=== PATIENT | male | born 1955 | race Caucasian/White ===

== ENCOUNTER → 2017-04-21 | Outpatient (CLI) | payer OTHER ==
[~2017-04-21] VITALS: Ht 172.7 cm; Wt 73.3 kg
[~2017-04-21] MED LIST: ASPI-516 CHEW; AVOD0.5C PO; LACTATED RINGER'S 1000 ML IV PRN; LIDOCAINE HCL 1% PF 5 ML SYRINGE OTHER ONE; LORA1TAB12 PO; METOPROLOL TARTRATE 25 MG TAB PO PRN; POVIDONE IODINE 5% (ANTISEPSIS KIT) 4 APPLICATIONS EACH NARE PRN; PROPOFOL 200 MG/20 ML AMP IV ONE; SERT-132 PO; SIMV40TA PO; SODIUM CHLORID 0.9% 500 ML IV PRN
--- NOTE | 2017-04-21 11:17 | EKG ---
Date Performed: 04/21/2017 Time Performed: 08:10:19 PTAGE: 62 years EKG: SINUS BRADYCARDIA BORDERLINE RIGHT AXIS DEVIATION BORDERLINE ECG No significant change from prior electrocardiogram. PREVIOUS TRACING : 12/23/2015 05.01 DOCTOR: Marcello Cheek Interpretating Date/Time 04/21/2017 11:15:53
--- NOTE | 2017-04-21 11:37 | GIPROC ---
[facility] [address] [facility]. [facility], [address] EGD PROCEDURE REPORT EXAM DATE: 04/21/2017 PATIENT NAME: Addy Clemons MR #: [id number] BIRTHDATE: 1955 ATTENDING: Jamaal Miller MD ORDER #: [id number] DINING SERVER: Christoph Roberto Pat STATUS: outpatient INDICATIONS: The patient is a 62 yr old male here for an EGD due to dysphagia PROCEDURE PERFORMED: EGD w/ biopsy MEDICATIONS: Per Anesthesia and None. TOPICAL ANESTHETIC: none CONSENT: The patient understands the risks and benefits of the procedure and understands that these risks include, but are not limited to: sedation, allergic reaction, infection, perforation and/or bleeding. Alternative means of evaluation and treatment include, among others: physical exam, x-rays, and/or surgical intervention. The patient elects to proceed with this endoscopic procedure. medical equipment was checked for proper function. Hand hygiene and appropriate measures for infection prevention was taken. After the risks, benefits and alternatives of the procedure were thoroughly explained, Informed consent was verified, confirmed and timeout was successfully executed by the treatment team. The patient was anesthetized with topical anesthesia and the [employer] [id number] endoscope was introduced through the mouth and advanced to the second portion of the duodenum. Retroflexed views revealed a hiatal hernia The gastroscope was then slowly withdrawn and removed. Severe esophagitis entire esophagus with thickened white exudate. Esophagus dilated with retained secretions and a few food particles c/w achalasia. Multiple biopsies were performed using cold forceps. STOMACH: A 1cm hiatal hernia was noted. The stomach otherwise appeared normal. DUODENUM: The duodenal mucosa appeared normal. ADVERSE EVENTS: There were no complications. IMPRESSIONS: 1. Severe esophagitis entire esophagus with thickened white exudate. Esophagus dilated with retained secretions and a few food particles c/w achalasia 2. 1cm hiatal hernia 3. The stomach otherwise appeared normal 4. Normal duodenal mucosa 5. Retroflexed views revealed a hiatal hernia RECOMMENDATIONS: Schedule Barium swallow and esophageal manometry. PATIENT CONDITION: stable DISPOSITION: Home REPEAT EXAM: NONE Jamaal Miller MD eSigned: Jamaal Miller MD 04/21/2017 11:37 AM cc: Cirilo Crowley M.D. PATIENT NAME: Addy Clemons MR#: [id number]
--- NOTE | 2017-04-21 11:43 | GIPROC ---
[facility] [address] [facility]. [facility], [address] COLONOSCOPY PROCEDURE REPORT EXAM DATE: 04/21/2017 PATIENT NAME: Addy Clemons MR #: [id number] BIRTHDATE: 1955 ENDOSCOPIST: Jamaal Miller MD ORDER #: [id number] DIRECTOR DESIGN: Christoph Roberto Pat STATUS: outpatient INDICATIONS: The patient is a 62 yr old male here for a colonoscopy due to follow up of colonic polyps and patient's immediate family history of colon cancer PROCEDURE PERFORMED: Colonoscopy, diagnostic MEDICATIONS: Per Anesthesia and None. PREP QUALITY: good ESTIMATED BLOOD LOSS: None CONSENT: The patient understands the risks and benefits of the procedure and understands that these risks include, but are not limited to: sedation, allergic reaction, infection, perforation and/or bleeding. Alternative means of evaluation and treatment include, among others: physical exam, x-rays, and/or surgical intervention. The patient elects to proceed with this endoscopic procedure. medical equipment was checked for proper function. Hand hygiene and appropriate measures for infection prevention was taken. After the risks, benefits and alternatives of the procedure were thoroughly explained, Informed consent was verified, confirmed and timeout was successfully executed by the treatment team. A digital exam revealed no abnormalities of the rectum The Pentax [id number] endoscope was introduced through the anus and advanced to the cecum, which was identified by both the appendix and ileocecal valve. The instrument was then slowly withdrawn as the colon was fully examined. COLON FINDINGS: Mild diverticulosis was noted in the sigmoid colon. Retroflexion was performed and was normal The scope was then completely withdrawn from the patient and the procedure terminated. PROCEDURE WITHDRAWAL TIME:8minutes ADVERSE EVENTS: There were no complications. IMPRESSIONS: 1. Mild diverticulosis was noted in the sigmoid colon 2. Retroflexion was performed and was normal 3. Revealed no abnormalities of the rectum RECOMMENDATIONS: RECALL: Return 3 years Colonoscopy Jamaal Miller MD eSigned: Jamaal Miller MD 04/21/2017 11:42 AM cc: Cirilo Snowden M.D. PATIENT NAME: Addy Clemons MR#: [id number]
[2017-04-21 12:20] VITALS: BP 120/77; PULSE 52; RESP 20; TEMP 98; O2SAT 100
== END ==
LOC: HEND 07:47
PROVIDERS: ATTEND Internal Medicine Gastroenterology
DX: Z12.11 Encounter for screening for malignant neoplasm of colon (principal); Z86.010 Personal history of colon polyps; K57.30 Diverticulosis of large intestine without perforation or abscess without bleeding; K44.9 Diaphragmatic hernia without obstruction or gangrene; K20.9 Esophagitis, unspecified; R13.10 Dysphagia, unspecified; R94.31 Abnormal electrocardiogram [ECG] [EKG]
CPT/HCPCS: 00813; 43239; 45378; 88305; 93005; J7120

== ENCOUNTER → 2017-05-04 | Outpatient (CLI) | payer OTHER ==
[~2017-05-04] VITALS: Ht 172.7 cm; Wt 70.4 kg
[~2017-05-04] MED LIST changes: +BENZOCAINE 20% ORAL SPR 60 ML CAN OROPHARYNG ONE; -LACTATED RINGER'S 1000 ML IV PRN; -LIDOCAINE HCL 1% PF 5 ML SYRINGE OTHER ONE; +LIDOCAINE HCL 2% JELLY 5 ML SYRINGE TOPICAL ONE; -METOPROLOL TARTRATE 25 MG TAB PO PRN; -POVIDONE IODINE 5% (ANTISEPSIS KIT) 4 APPLICATIONS EACH NARE PRN; -PROPOFOL 200 MG/20 ML AMP IV ONE; -SODIUM CHLORID 0.9% 500 ML IV PRN
[2017-05-04 07:26] VITALS: BP 157/74; PULSE 54; RESP 16; TEMP 98.2; O2SAT 100
== END ==
LOC: HEND 06:49
PROVIDERS: ATTEND Internal Medicine Gastroenterology
DX: R13.10 Dysphagia, unspecified (principal); K44.9 Diaphragmatic hernia without obstruction or gangrene; I25.10 Atherosclerotic heart disease of native coronary artery without angina pectoris
CPT/HCPCS: 91010

== ENCOUNTER 2017-06-05 11:15 | Observation (INO) | payer OTHER ==
[~2017-06-05 11:15] MED LIST changes: -BENZOCAINE 20% ORAL SPR 60 ML CAN OROPHARYNG ONE; -LIDOCAINE HCL 2% JELLY 5 ML SYRINGE TOPICAL ONE
[2017-06-05 11:33] VITALS: BP 170/89; PULSE 74; RESP 14; TEMP 98.3; O2SAT 98
[2017-06-05 12:23] VITALS: BP 163/76; PULSE 65; RESP 16; O2SAT 60; O2SAT 99
--- NOTE | 2017-06-05 12:24 | RADRPT ---
EXAM DATE/TIME: 06/05/2017 12:04 [place] COMPARISON: No previous studies available for comparison. INDICATIONS : Chest pain in middle of chest. MEDICAL HISTORY : Cardiovascular disease. Renal calculi SURGICAL HISTORY : CABG. Appendectomy. ENCOUNTER: Initial ACUITY: 1 day PAIN SCORE: 4/10 LOCATION: mid chest FINDINGS: Increased density and fullness is identified posterior to the heart extending from the hilar region t o the diaphragm. Postsurgical changes are noted from previous median sternotomy The heart is normal size. Lungs are hyperinflated but otherwise clear. Osseous structures are intact. CONCLUSION: 1. Retrocardiac mediastinal fullness which may indicate distention of the esophagus and a hiatal aliyah ia. Since patient is a referrable to this area further evaluation with esophagram should be considere d. 2. COPD. 3. No acute cardiopulmonary process. 4. Status post CABG. Femi Lizarraga MD on June 05, 2017 at 12:12 Board Certified Radiologist. This report was verified electronically.
--- NOTE | 2017-06-05 12:30 | PD ---
HPI Chief Complaint: Chest Pain Time Seen by Provider: 13:44 Travel History International Travel<30 days: No Contact w/Intl Traveler<30days: No Traveled to known affect area: No History of Present Illness HPI 62-year-old male with history of CABG, angina, esophageal achalasia, presents emergency department complaining of 3 days of midsternal chest pain associated with diaphoresis that started as he was driving for his colonoscopy. Says the pain was midsternal, achy and constant 4 out of 10. States that the pain was constant for the last couple days until yesterday when he ate. Says a few hours after eating his pain decreased and went away without intervention. He woke up this morning and had the same pain he decided to come to the emergency department. States his pain was constant until he actually got a bed in the emergency department today. Patient says this feels similar to previous episodes of problems with his achalasia. Patient takes a BASA daily. States that he does not currently follow a plush brusher. Does not remember his last echocardiogram or cath. PFSH Past Medical History Anxiety: Yes Depression: Yes Cancer: No Cardiovascular Problems: Yes Chest Pain: Yes Coronary Artery Disease: Yes Diabetes: No Diminished Hearing: No Endocrine: No Genitourinary: No Hepatitis: No Hiatal Hernia: Yes Immune Disorder: No Kidney Stones: Yes (X5) Medical other: Yes (ACHALASIA) Musculoskeletal: No Neurologic: No Psychiatric: No Reproductive: No Respiratory: No Immunizations Current: Yes Migraines: Yes Thyroid Disease: No Tetanus Vaccination: < 5 Years ?: Not Past Surgical History Abdominal Surgery: No AICD: No Appendectomy: Yes Body Medical Devices: bilateral kidney stents Cardiac Surgery: Yes Coronary Artery Bypass Graft: Yes (TRIPLE) Ear Surgery: No Endocrine Surgery: No Eye Surgery: No Genitourinary Surgery: No Gynecologic Surgery: No Joint Replacement: No Oral Surgery: No Pacemaker: No Thoracic Surgery: No Other Surgery: Yes (WISDOM TEETH REMOVED) Social History Alcohol Use: No Tobacco Use: No Substance Use: No Allergies-Medications (Allergen,Severity, Reaction): Coded Allergies: Paper Wasp (Verified Allergy, Severe, Anaphylaxis, 06/05/17) latex (Verified Allergy, Severe, HIVES, 04/21/17) tomato (Verified Allergy, Severe, Sneezing, 04/21/17) chlorhexidine (Verified Allergy, Intermediate, rash, 04/21/17) Reported Meds & Prescriptions Reported Meds & Active Scripts Active Avodart (Dutasteride) 0.5 Mg Cap 0.5 Mg PO DAILY Lorazepam 1 Mg Tab 1 Mg PO HS PRN Simvastatin 40 Mg Tab 40 Mg PO HS Reported Aspirin 81 Mg Chew 81 Mg CHEW DAILY Review of Systems Except as stated in HPI: all other systems reviewed are Neg Physical Exam Narrative GENERAL: Well-developed, well-nourished in no apparent distress, resting comfortably in bed SKIN: Focused skin assessment warm/dry. HEAD: Atraumatic. Normocephalic. EYES: Pupils equal and round. No scleral icterus. No injection or drainage. ENT: No nasal bleeding or discharge. Mucous membranes pink and moist. NECK: Trachea midline. No JVD. CARDIOVASCULAR: Regular rate and rhythm. No murmur appreciated. RESPIRATORY: No accessory muscle use. Clear to auscultation. Breath sounds equal bilaterally. GASTROINTESTINAL: Abdomen soft, non-tender, nondistended. Hepatic and splenic margins not palpable. MUSCULOSKELETAL: No obvious deformities. No clubbing. No cyanosis. No edema. No chest wall tenderness NEUROLOGICAL: Awake and alert. No obvious cranial nerve deficits. Motor grossly within normal limits. Normal speech. PSYCHIATRIC: Appropriate mood and affect; insight and judgment normal. Data Data Last Documented VS Vital Signs Date Time Temp Pulse Resp B/P (MAP) Pulse Ox O2 Delivery O2 Flow Rate FiO2 06/05/17 12:23 65 16 163/76 (105) 99 Room Air 06/05/17 11:33 98.3 Orders Orders Electrocardiogram (06/05/17 11:37) Basic Metabolic Panel (Bmp) (06/05/17 11:37) Ckmb (Isoenzyme) Profile (06/05/17 11:37) Complete Blood Count With Diff (06/05/17 11:37) Magnesium (Mg) (06/05/17 11:37) Prothrombin Time / Inr (Pt) (06/05/17 11:37) Act Partial Throm Time (Ptt) (06/05/17 11:37) Troponin I (06/05/17 11:37) Lipase (06/05/17 11:37) Chest, Pa & Lat (06/05/17 11:37) CKMB (06/05/17 12:20) CKMB% (06/05/17 12:20) Admit Order (Ed Use Only) (06/05/17 13:49) Activity Bed Rest With Brp (06/05/17 13:49) Vital Signs (Adult) Q4H (06/05/17 13:49) Cardiac Rhythm .As Directed (06/05/17 13:49) Notify Dr: Other .PRN (06/05/17 13:49) Notify DrLorena Parameters (06/05/17 13:49) Resp Oxygen Nasal Cannula (06/05/17 ) Ckmb (Isoenzyme) Profile (06/05/17 15:20) Ckmb (Isoenzyme) Profile (06/05/17 18:20) Troponin I (06/05/17 15:20) Troponin I (06/05/17 18:20) Electrocardiogram (06/05/17 15:20) Electrocardiogram (06/05/17 18:20) ^ Obtain (06/05/17 13:49) Sodium Chloride 0.9% Flush (Ns Flush) (06/05/17 14:00) Sodium Chloride 0.9% Flush (Ns Flush) (06/05/17 21:00) Acetaminophen (Tylenol) (06/05/17 14:00) [employer] Studies Professor / Telemetry [email or web address] (06/05/17 13:49) Labs Laboratory Tests Test 06/05/17 12:20 White Blood Count 7.3 TH/MM3 Red Blood Count 4.75 MIL/MM3 Hemoglobin 15.3 GM/DL Hematocrit 44.2 % Mean Corpuscular Volume 92.9 FL Mean Corpuscular Hemoglobin 32.2 PG Mean Corpuscular Hemoglobin Concent 34.6 % Red Cell Distribution Width 13.4 % Platelet Count 202 TH/MM3 Mean Platelet Volume 9.3 FL Neutrophils (%) (Auto) 73.5 % Lymphocytes (%) (Auto) 12.3 % Monocytes (%) (Auto) 13.0 % Eosinophils (%) (Auto) 0.8 % Basophils (%) (Auto) 0.4 % Neutrophils # (Auto) 5.3 TH/MM3 Lymphocytes # (Auto) 0.9 TH/MM3 Monocytes # (Auto) 0.9 TH/MM3 Eosinophils # (Auto) 0.1 TH/MM3 Basophils # (Auto) 0.0 TH/MM3 CBC Comment DIFF FINAL Differential Comment Prothrombin Time 10.0 SEC Prothromb Time International Ratio 1.0 RATIO Activated Partial Thromboplast Time 23.7 SEC Blood Urea Nitrogen 16 MG/DL Creatinine 1.35 MG/DL Random Glucose 106 MG/DL Calcium Level 9.4 MG/DL Magnesium Level 2.2 MG/DL Sodium Level 136 MEQ/L Potassium Level 5.4 MEQ/L Chloride Level 104 MEQ/L Carbon Dioxide Level 26.4 MEQ/L Anion Gap 6 MEQ/L Estimat Glomerular Filtration Rate 53 ML/MIN Total Creatine Kinase 235 U/L Creatine Kinase MB 1.6 NG/ML Troponin I LESS THAN 0.02 NG/ML Lipase 213 U/L MDM Medical Decision Making Medical Screen Exam Complete: Yes Emergency Medical Condition: Yes Differential Diagnosis NSTEMI, atypical chest pain, angina, unstable angina Narrative Course 62-year-old male with history of CABG in 2012 presents emergency department complaining of midsternal chest pain, aching, without radiation for approximately 3 days. Patient states that started 3 days ago as he was driving for procedure [facility] [place] [facility]. States the pain was constant until yesterday when it resolved on its own. Says it recurred today and prompted him to come to the emergency department. Says he did take an aspirin this morning. He does not follow cardiology and has not for a number of years. Vital signs are stable Physical exam findings unremarkable. EKG demonstrates sinus bradycardia without STEMI changes. Last Impressions Chest X-Ray 06/05/17 1137 Signed Impressions: Service Date/Time: Monday, June 05, 2017 12:04 - CONCLUSION: 1. Retrocardiac mediastinal fullness which may indicate distention of the esophagus and a hiatal hernia. Since patient is a referrable to this area further evaluation with esophagram should be considered. 2. COPD. 3. No acute cardiopulmonary process. 4. Status post CABG. Femi Lizarraga MD The patient has been seen for achalasia previously and is due to follow-up with GI again soon. CMP significant for potassium of 5.4., Cardiac enzymes negative. CBC unremarkable. Coags normal. Because of patient's history of CABG and no follow-up with plush brusher in some time, patient will be admitted to the chest pain center for observation, rule out ACS. Please see Dr. Underwood's note as well regarding this patient. Diagnosis Primary Impression: Coronary artery disease Qualified Codes: I25.700 - Atherosclerosis of coronary artery bypass graft(s) , unspecified, with unstable angina pectoris Additional Impression: Chest pain Qualified Codes: R07.2 - Precordial pain Admitting Information Admitting Physician Requests: Observation Condition: Stable Rosalva Houser Jun 05, 2017 12:30
[2017-06-05 12:33] LABS: AUTOMATED NEUTROPHIL # 5.3 TH/MM3 (1.8-7.7); BASOPHIL % 0.4 % (0.0-2.0); EOSINOPHIL # 0.1 TH/MM3 (0-0.4); EOSINOPHIL % 0.8 % (0.0-4.0); HEMATOCRIT 44.2 % (39.0-51.0); HEMOGLOBIN 15.3 GM/DL (13.0-17.0); LYMPH % 12.3 % (9.0-44.0); LYMPHOCYTE # 0.9 TH/MM3 (1.0-4.8); MEAN CELL VOLUME 92.9 FL (80.0-100.0); MEAN CORPUSCULAR HEMOGLOBIN 32.2 PG (27.0-34.0); MEAN CORPUSCULAR HGB CONC 34.6 % (32.0-36.0); MEAN PLATELET VOLUME 9.3 FL (7.0-11.0); MONOCYTE # 0.9 TH/MM3 (0-0.9); NEUT % 73.5 % (16.0-70.0); PLATELET COUNT 202 TH/MM3 (150-450); RED BLOOD COUNT 4.75 MIL/MM3 (4.50-5.90); RED CELL DISTRIBUTION WIDTH 13.4 % (11.6-17.2); WHITE BLOOD COUNT 7.3 TH/MM3 (4.0-11.0)
[2017-06-05 13:07] LABS: BICARBONATE 26.4 MEQ/L (21.0-32.0); BLOOD UREA NITROGEN 16 MG/DL (7-18); CALCIUM 9.4 MG/DL (8.5-10.1); CHLORIDE 104 MEQ/L (98-107); CREATININE 1.35 MG/DL (0.60-1.30); GLOMERULAR FILTRATION RATE 53 ML/MIN (>89); GLUCOSE,RANDOM 106 MG/DL (74-106); MAGNESIUM 2.2 MG/DL (1.5-2.5); SODIUM (NA) 136 MEQ/L (136-145)
[2017-06-05 13:15] LABS: TROPONIN I LESS THAN 0.02 NG/ML (0.02-0.05)
[2017-06-05] MEDS ORDERED: SODIUM CHLORIDE 0.9% FLUSH 10 ML FLUSH IV FLUSH PRN (14:00)
[2017-06-05] MEDS ORDERED: ACETAMINOPHEN 500 MG CPLT PO PRN (14:00)
[2017-06-05 14:24] VITALS: BP 128/63; PULSE 63; RESP 16; O2SAT 99
--- NOTE | 2017-06-05 14:38 | PD ---
Physical Exam Narrative I, Dr. Underwood, have reviewed the advance practice practitioner's documentation and am in agreement, met with the patient face to face, made the diagnosis, and the medical decision making was done by me. *My assessment and Findings: ACS vs. achalasia vs. GERD 62yo M with midsternal chest pain since . Said it feels different from his achalasia and not sharp. Associated with sob with driving. Said it is intermittent but chest pain free now. Had some left arm pain yesterday and unsure if it is related. Denies any fever, n/v, new abdominal pain, focal weakness or numbness. Labs reviewed, no leukocytosis. H/H normal. Troponin negative. K 5.4, moderately hemolyzed. CXR showed retrocardiac mediastinal fullness and may indicate distention of esophagus and hiatal hernia. Pt has outpatient GI follow up and history of achalasia. Pt has significant CAD with atypical chest pain, will admit to chest pain center for serial EKG and cardiac enzymes. Data Data Last Documented VS Vital Signs Date Time Temp Pulse Resp B/P (MAP) Pulse Ox O2 Delivery O2 Flow Rate FiO2 06/05/17 12:23 65 16 163/76 (105) 99 Room Air 06/05/17 11:33 98.3 Orders Orders Electrocardiogram (06/05/17 11:37) Basic Metabolic Panel (Bmp) (06/05/17 11:37) Ckmb (Isoenzyme) Profile (06/05/17 11:37) Complete Blood Count With Diff (06/05/17 11:37) Magnesium (Mg) (06/05/17 11:37) Prothrombin Time / Inr (Pt) (06/05/17 11:37) Act Partial Throm Time (Ptt) (06/05/17 11:37) Troponin I (06/05/17 11:37) Lipase (06/05/17 11:37) Chest, Pa & Lat (06/05/17 11:37) CKMB (06/05/17 12:20) CKMB% (06/05/17 12:20) Admit Order (Ed Use Only) (06/05/17 13:49) Activity Bed Rest With Brp (06/05/17 13:49) Vital Signs (Adult) Q4H (06/05/17 13:49) Cardiac Rhythm .As Directed (06/05/17 13:49) Notify Dr: Other .PRN (06/05/17 13:49) Notify Dr. Parameters (06/05/17 13:49) Resp Oxygen Nasal Cannula (06/05/17 ) ^ Obtain (06/05/17 13:49) Sodium Chloride 0.9% Flush (Ns Flush) (06/05/17 14:00) Sodium Chloride 0.9% Flush (Ns Flush) (06/05/17 21:00) Acetaminophen (Tylenol) (06/05/17 14:00) Clarity Developer / Telemetry [email or web address] (06/05/17 13:49) Labs Laboratory Tests Test 06/05/17 12:20 White Blood Count 7.3 TH/MM3 Red Blood Count 4.75 MIL/MM3 Hemoglobin 15.3 GM/DL Hematocrit 44.2 % Mean Corpuscular Volume 92.9 FL Mean Corpuscular Hemoglobin 32.2 PG Mean Corpuscular Hemoglobin Concent 34.6 % Red Cell Distribution Width 13.4 % Platelet Count 202 TH/MM3 Mean Platelet Volume 9.3 FL Neutrophils (%) (Auto) 73.5 % Lymphocytes (%) (Auto) 12.3 % Monocytes (%) (Auto) 13.0 % Eosinophils (%) (Auto) 0.8 % Basophils (%) (Auto) 0.4 % Neutrophils # (Auto) 5.3 TH/MM3 Lymphocytes # (Auto) 0.9 TH/MM3 Monocytes # (Auto) 0.9 TH/MM3 Eosinophils # (Auto) 0.1 TH/MM3 Basophils # (Auto) 0.0 TH/MM3 CBC Comment DIFF FINAL Differential Comment Prothrombin Time 10.0 SEC Prothromb Time International Ratio 1.0 RATIO Activated Partial Thromboplast Time 23.7 SEC Blood Urea Nitrogen 16 MG/DL Creatinine 1.35 MG/DL Random Glucose 106 MG/DL Calcium Level 9.4 MG/DL Magnesium Level 2.2 MG/DL Sodium Level 136 MEQ/L Potassium Level 5.4 MEQ/L Chloride Level 104 MEQ/L Carbon Dioxide Level 26.4 MEQ/L Anion Gap 6 MEQ/L Estimat Glomerular Filtration Rate 53 ML/MIN Total Creatine Kinase 235 U/L Creatine Kinase MB 1.6 NG/ML Troponin I LESS THAN 0.02 NG/ML Lipase 213 U/L MDM Supervised Visit with [facility]LOE: Yes Diagnosis Primary Impression: Chest pain Qualified Codes: R07.9 - Chest pain, unspecified Admitting Information Admitting Physician Requests: Observation Condition: Stable Clover Underwood DO Jun 05, 2017 14:38
[2017-06-05] MEDS ORDERED: LORazepam 1 MG TAB PO PRN (14:45)
[2017-06-05 15:25] VITALS: BP 170/77; PULSE 58; RESP 19; TEMP 97; O2SAT 99
[2017-06-05] MEDS ORDERED: SODIUM CHLOR 0.9% 1000 ML INJ 1,000 ML IV SCH (15:32)
--- NOTE | 2017-06-05 15:32 | HHI.HP ---
HPI Primary Care Physician Cirilo Crowley MD Chief Complaint Chest pain History of Present Illness This is a 62-year-old male with history of CAD with a three-vessel bypass in 2013 and achalasia that presents to ED with a complaint of chest discomfort and as he states that he points to epigastric region. States it has been there constantly for 3 days. Describes as an ache. States it feels similar to his symptoms when he has issues of achalasia. Denies nausea but states he has been burping a lot. Denies emesis. Denies shortness of breath or diaphoresis. When asked if it feels similar to symptoms that led to his bypass he states no. He states he had no chest discomforts leading up to his bypass. States that he had noticed that he was becoming very fatigued doing activities that he normally could do without any issue. He had a friend that was insecticide expert and he discussed this with him. Had a calcium score obtained which was high. He then had a stress test which he states he failed in the assistant pastry chef's office. That led to a cardiac catheterization revealing the need of a three-vessel bypass. He followed with his assistant pastry chef for couple years and then states he was told by the assistant pastry chef to just call him if he needs anything. Has had no stress testing or heart catheterization for 3 or 4 years. He has been seeing Dr. Miller for his GI issues and was scheduled to have a colonoscopy today but came to the ED to be evaluated for his chest discomfort. Found nothing to worsen his symptoms. States he has had essentially no appetite. He was n.p.o. after morning to have a barium swallow obtained on Monday which is June 02. He is not aware of the results of that however the ER physician certified medical technician assistant was able to obtain these records which report by radiologist read as "distended debris filled esophagus with tapering distally consistent with achalasia." Yesterday he ate some food for the first time since which he states was quiche. He states that actually improved his symptoms somewhat. The discomfort afterwards was about a 4 out of 10. States there was no emesis after eating the food. States that his discomforts resolved almost immediately after he laid down in the ED bed. Review of Systems General: Patient denies fevers, chills, and recent travel. HEENT: Patient denies headache, sore throat, difficulty swallowing. Cardiovascular: Has the chest discomfort as mentioned above. Denies sensation of heart beating rapidly or irregularly. No syncope. Denies diaphoresis. Respiratory: Denies shortness of breath or inspirational chest discomfort. Denies coughing wheezing or hemoptysis. GI: Patient denies nausea but states he was burping quite a bit after eating quiche yesterday. Denies vomiting, diarrhea, abdominal pain, bloody stools. Musculoskeletal: Patient denies joint pain or edema. Denies calf pain or edema. Neurovascular: Patient denies numbness, tingling, weakness in extremities. Denies headache. Endocrine: Denies polyuria and polydipsia. Hematologic: Denies easy bruising. Skin: Denies rash or itching. Past Family Social History Allergies: Coded Allergies: Paper Wasp (Verified Allergy, Severe, Anaphylaxis, 06/05/17) latex (Verified Allergy, Severe, HIVES, 04/21/17) tomato (Verified Allergy, Severe, Sneezing, 04/21/17) chlorhexidine (Verified Allergy, Intermediate, rash, 04/21/17) Past Medical History CAD with a three-vessel bypass in 2012. Achalasia. Hyperlipidemia and BPH. Denies hypertension and diabetes. Past Surgical History Three-vessel bypass in 2013. Had a heart catheterization afterwards and states that his assistant pastry chef told him everything looked okay. He has had endoscopies. Reported Medications Reported Meds & Active Scripts Active Avodart (Dutasteride) 0.5 Mg Cap 0.5 Mg PO DAILY Lorazepam 1 Mg Tab 1 Mg PO HS PRN Simvastatin 40 Mg Tab 40 Mg PO HS Reported Aspirin 81 Mg Chew 81 Mg CHEW DAILY Active Ordered Medications Current Medications Medications (Trade) Dose Ordered Sig/Jesusita Route Start Time Stop Time Status Last Admin (NS Flush) 2 ml UNSCH PRN IV FLUSH 06/05/17 14:00 (NS Flush) 2 ml BID IV FLUSH 06/05/17 21:00 (Tylenol) 500 mg Q4H PRN PO 06/05/17 14:00 (Ativan) 1 mg HS PRN PO 06/05/17 14:45 (Proscar) 5 mg DAILY PO 06/06/17 09:00 (Pravachol) 80 mg HS PO 06/05/17 21:00 Family History His father and sibling also have CAD. Social History Quit smoking in 2002, had smoked about 1 pack of cigarettes daily for 16 years prior. Denies alcohol or illicit drugs. Physical Exam Vital Signs Vital Signs Date Time Temp Pulse Resp B/P (MAP) Pulse Ox O2 Delivery O2 Flow Rate FiO2 06/05/17 15:19 06/05/17 14:24 63 16 128/63 (84) 99 Room Air 06/05/17 12:23 65 16 163/76 (105) 99 Room Air 06/05/17 11:33 98.3 74 14 170/89 (116) 98 Physical Exam GENERAL: This is a well-nourished, well-developed patient, in no apparent distress. Patient speaks in clear complete sentences. Patient is pleasant. HEENT: Head is atraumatic and normocephalic. Neck is supple without lymphadenopathy and trachea is midline. No JVD or carotid bruits. CARDIOVASCULAR: Regular rate and rhythm without murmurs, gallops, or rubs. RESPIRATORY: Clear to auscultation. Breath sounds equal bilaterally. No wheezes , rales, or rhonchi. Chest wall is nontender. No use of accessory muscles. GASTROINTESTINAL: There is some epigastric tenderness which she states is similar to the discomfort he had been having. States it is a similar discomfort that he has had one having issues with achalasia. Abdomen is nondistended. Abdomen soft. No obvious pulsatile mass or bruit. No CVA tenderness. Strong femoral pulses bilaterally. Normal bowel sounds in all quadrants. MUSCULOSKELETAL: Patient is moving upper and lower extremities freely. No calf tenderness or edema, no Homans sign. Strong pulses in upper and lower extremities. NEUROLOGICAL: Patient is alert and oriented. Cranial nerves 2-12 are grossly intact. No focal deficits and speech is clear. SKIN: No rash and turgor is normal. Laboratory Laboratory Tests Test 06/05/17 12:20 White Blood Count 7.3 Red Blood Count 4.75 Hemoglobin 15.3 Hematocrit 44.2 Mean Corpuscular Volume 92.9 Mean Corpuscular Hemoglobin 32.2 Mean Corpuscular Hemoglobin Concent 34.6 Red Cell Distribution Width 13.4 Platelet Count 202 Mean Platelet Volume 9.3 Neutrophils (%) (Auto) 73.5 Lymphocytes (%) (Auto) 12.3 Monocytes (%) (Auto) 13.0 Eosinophils (%) (Auto) 0.8 Basophils (%) (Auto) 0.4 Neutrophils # (Auto) 5.3 Lymphocytes # (Auto) 0.9 Monocytes # (Auto) 0.9 Eosinophils # (Auto) 0.1 Basophils # (Auto) 0.0 CBC Comment DIFF FINAL Differential Comment Prothrombin Time 10.0 Prothromb Time International Ratio 1.0 Activated Partial Thromboplast Time 23.7 Blood Urea Nitrogen 16 Creatinine 1.35 Random Glucose 106 Calcium Level 9.4 Magnesium Level 2.2 Sodium Level 136 Potassium Level 5.4 Chloride Level 104 Carbon Dioxide Level 26.4 Anion Gap 6 Estimat Glomerular Filtration Rate 53 Total Creatine Kinase 235 Creatine Kinase MB 1.6 Troponin I LESS THAN 0.02 Lipase 213 Result Diagram: 06/05/17 1220 06/05/17 1220 Imaging Last 48 hours Impressions Chest X-Ray 06/05/17 1137 Signed Impressions: Service Date/Time: Monday, June 05, 2017 12:04 - CONCLUSION: 1. Retrocardiac mediastinal fullness which may indicate distention of the esophagus and a hiatal hernia. Since patient is a referrable to this area further evaluation with esophagram should be considered. 2. COPD. 3. No acute cardiopulmonary process. 4. Status post CABG. Femi Lizarraga MD Course Initial EKG is sinus rhythm without significant ST segment depressions or elevations. Caprini VTE Risk Assessment Caprini VTE Risk Assessment: Mod/High Risk (score >= 2) Caprini Risk Assessment Model Point Value = 1 Point Value = 2 Point Value = 3 Point Value = 5 Age 41-60 Minor surgery BMI > 25 kg/m2 Swollen legs Varicose veins or History of unexplained or recurrent spontaneous Oral contraceptives or hormone replacement Sepsis (< 1 month) Serious lung disease, including pneumonia (< 1 month) Abnormal pulmonary function Acute myocardial infarction Congestive heart failure (< 1 month) History of inflammatory bowel disease Medical patient at bed rest Age 61-74 Arthroscopic surgery Major open surgery (> 45 min) Laparoscopic surgery (> 45 min) Malignancy Confined to bed (> 72 hours) Immobilizing plaster cast Central venous access Age >= 75 History of VTE Family history of VTE Factor V Leiden Prothrombin [id number] Lupus anticoagulant Anticardiolipin antibodies Elevated serum homocysteine Heparin-induced thrombocytopenia Other congenital or acquired thrombophilia Stroke (< 1 month) Elective arthroplasty Hip, pelvis, or leg fracture Acute spinal cord injury (< 1 month) Prophylaxis Regimen Total Risk Factor Score Risk Level Prophylaxis Regimen 0-1 Low Early ambulation 2 Moderate Order ONE of the following: *Sequential Compression Device (SCD) *Heparin 5000 units SQ BID 3-4 Higher Order ONE of the following medications: *Heparin 5000 units SQ TID *Enoxaparin/Lovenox 40 mg SQ daily (WT < 150 kg, CrCl > 30 mL/min) *Enoxaparin/Lovenox 30 mg SQ daily (WT < 150 kg, CrCl > 10-29 mL/min) *Enoxaparin/Lovenox 30 mg SQ BID (WT < 150 kg, CrCl > 30 mL/min) AND/OR *Sequential Compression Device (SCD) 5 or more Highest Order ONE of the following medications: *Heparin 5000 units SQ TID (Preferred with Epidurals) *Enoxaparin/Lovenox 40 mg SQ daily (WT < 150 kg, CrCl > 30 mL/min) *Enoxaparin/Lovenox 30 mg SQ daily (WT < 150 kg, CrCl > 10-29 mL/min) *Enoxaparin/Lovenox 30 mg SQ BID (WT < 150 kg, CrCl > 30 mL/min) AND *Sequential Compression Device (SCD) Assessment and Plan Assessment and Plan * Chest pain: Patient had discomfort for 3 days constant and his first troponin was normal. Patient will be seen by Dr. Addy Hernández of cardiology in the chest pain center. He will have a Lexiscan and likely be discharged that is nonischemic with instructions to follow-up with gastroenterology and PCP. Return to ED for interval issues. * CAD: Patient has history of a three-vessel bypass in 2012. This will be reassessed with stress testing. He will need follow-up outpatient cardiology. * Achalasia: He will need further follow-up with his box stacker. * Hyperlipidemia: Continue medication. Patient is stable at this time. He is agreeable to this plan. Dimitri Youngblood Jun 05, 2017 15:32
[2017-06-05] MEDS ORDERED: REGADENOSON INJ 0.4 MG/5 ML SYR ONE (16:21)
--- NOTE | 2017-06-05 16:57 | HHI.DCPOC ---
Discharge Care Plan Diagnosis: (1) Chest pain (2) Achalasia (3) Coronary artery disease (4) Hx of CABG (5) Hyperlipidemia Goals to Promote Your Health * To prevent worsening of your condition and complications * To maintain your health at the optimal level Directions to Meet Your Goals Take your medications as prescribed Follow your dietary instruction Follow activity as directed Keep your appointments as scheduled Take your immunizations and boosters as scheduled If your symptoms worsen call your PCP, if no PCP go to Urgent Care Center or Emergency Room Smoking is Dangerous to Your Health. Avoid second hand smoke Call the 24-hour hour crisis hotline for domestic abuse at Dimitri Youngblood Jun 05, 2017 16:57
--- NOTE | 2017-06-05 17:55 | RADRPT ---
EXAM DATE/TIME: 06/05/2017 16:15 [facility] COMPARISON: No previous studies available for comparison. INDICATIONS : Mid chest pain for three days. Angina. Coronary artery disease. DOSE: 26.2 mCi Tc99m Myoview at stress. 8.7 mCi Tc99m Myoview at rest. 0.4 mg Lexiscan STRESS SYMPTOMS: Shortness of breath and a headache. EJECTION FRACTION: 53% MEDICAL HISTORY : Hypertension. Esophageal achalasia. SURGICAL HISTORY : CABG ENCOUNTER: Initial ACUITY: 3 days PAIN SCALE: 4/10 LOCATION: Midsternal chest TECHNIQUE: The patient underwent pharmacologic stress with infusion of prescribed dose. Continuous ECG tracing was monitored during stress. Gated SPECT imaging was performed after stress and conventional SPECT i maging was performed at rest. The examination was performed on a SPECT/CT scanner, both attenuation and non-corrected datasets were reviewed. FINDINGS: DISTRIBUTION: The maximum perfused segment at stress is in the lateral wall. PERFUSION STUDY: There is 10-20% redistribution involving the septum between the stress and rest images. No significan t reversible defect observed GATED STUDY: There is intact wall motion and thickening without hypokinetic or dyskinetic segments. CONCLUSION: No significant reversible defect observed to suggest acute ischemia. RISK CATEGORY: Low Kimo Jim Jr., MD on June 05, 2017 at 17:51 Board Certified Radiologist. This report was verified electronically.
[2017-06-05 18:17] VITALS: BP 137/71; PULSE 69
[2017-06-05] MEDS ORDERED: NON-FORMULARY DRUG (Simvastatin 40 MG) PO SCH (21:00)
[2017-06-05] MEDS ORDERED: SODIUM CHLORIDE 0.9% FLUSH 10 ML FLUSH IV FLUSH SCH (21:00)
[2017-06-05] MEDS ORDERED: PRAVASTATIN SOD 80 MG TAB PO SCH (21:00)
[2017-06-06] MEDS ORDERED: FINASTERIDE 5 MG TAB PO SCH (09:00)
[2017-06-06] MEDS ORDERED: NON-FORMULARY DRUG (Dutasteride (Avodart) 0.5 MG) PO SCH (09:00)
[2017-06-06] MEDS ORDERED: INFLUENZA VIRUS VACCINE (QUADRIVALENT) 0.5 ML SYR IM ONE (10:00)
--- NOTE | 2017-06-06 16:05 | TR ---
Date Performed: 06/05/2017 Time Performed: 16:41:49 DOCTOR: Sheridan Atkinson DRUG LIST: CLINICAL HISTORY: ANGINA REASON FOR TEST: Angina REASON FOR ENDING: OBSERVATION: CONCLUSION: Lexiscan stress test was performed under standard four minute protocol. Radionuclid e was injected one minute prior to ending the test. No electrocardiographic abormalities were present to suggest ischemia. Nuclear imaging and interpretation are pending. COMMENTS:
--- NOTE | 2017-06-06 18:53 | EKG ---
Date Performed: 06/05/2017 Time Performed: 12:12:57 PTAGE: 62 years EKG: SINUS BRADYCARDIA BORDERLINE RIGHT AXIS DEVIATION BORDERLINE ECG Since the prior tracing, t here has been no significant change PREVIOUS TRACING : 04/21/2017 08.10 DOCTOR: Stalin Sam Interpretating Date/Time 06/06/2017 18:50:48
== END 2017-06-05 19:14 | disposition home or self-care (01) ==
LOC: NEPC 11:15 → NEDA 13:55 → NEPHCDU 15:57
PROVIDERS: ADMIT Internal Medicine Cardiovascular Disease; ATTEND Internal Medicine Cardiovascular Disease
DX: R07.9 Chest pain, unspecified (principal); I25.10 Atherosclerotic heart disease of native coronary artery without angina pectoris; E78.5 Hyperlipidemia, unspecified; R94.31 Abnormal electrocardiogram [ECG] [EKG]; J44.9 Chronic obstructive pulmonary disease, unspecified; K22.0 Achalasia of cardia; N40.0 Benign prostatic hyperplasia without lower urinary tract symptoms; Z87.442 Personal history of urinary calculi; Z87.891 Personal history of nicotine dependence
CPT/HCPCS: 71046; 78452; 80048; 82550; 82552; 83690; 83735; 84484; 85025; 85610; 85730; 93005; 93017; 96360; A9502; G0378; J2785; J7030